=== PATIENT | female | born 1960 | race Caucasian/White ===

== ENCOUNTER 2020-02-15 12:00 | Emergency (ER) | payer OTHER, SELFPAY ==
--- NOTE | 2020-02-15 12:05 | ED.SKABFB ---
HPI - Skin/Abscess/Foreign Bdy General Chief complaint: Skin/Abscess/Foreign Body Stated complaint: swollen finger Time Seen by Provider: 02/15/20 12:08 Source: patient and RN notes reviewed Mode of arrival: ambulatory Limitations: no limitations History of Present Illness complaint: other (Digit edema) Related Data Allergies Allergy/AdvReac Type Severity Reaction Status Date / Time No Known Allergies Allergy Verified 02/15/20 12:11 Review of Systems Review of Systems: Narrative: GENERAL: Well-appearing, well-nourished, and in no acute distress. HEAD: Normocephalic EYES: PERRLA, conjunctivae clear NECK: Supple. CHEST: Speaks in full sentences. No respiratory distress. HEART: Regular rate and rhythm. Normal and equal peripheral pulses. EXTREMITIES: Left hand and digits of hand have normal strength and sensation. 5/5 strength with digit flexion, extension. Range of motion normal. No clubbing, cyanosis, or edema noted. No tenderness. Skin intact. Normal digital cascade with flexion of fingers, median, ulnar and radial nerve intact. Normal sensation of each side of finger. Can perform 'okay' sign, 'cross over finger test of index and middle fingers' and 'thumbs up' sign. No scissoring. Normal thumb opposition. Good capillary refill and radial pulse. Distal capillary refill ?3 seconds. SKIN: Warn, dry, intact, pink. Fifth digit of left hand erythematous, edematous, indurated, tender, cap refill less than 3 seconds NEURO: Alert and oriented x3. PSYCH: Normal mood and affect All systems reviewed & are unremarkable except as noted in HPI and below PMFSH Social History Social History Gender identity (if verbalized by the patient): Female Comments At time of signature, agree with nursing past medical, surgical, social and family history. There is no relevant family history pertinent to the presenting complaint Exam Narrative: Exam Narrative: GENERAL: Well-appearing, well-nourished, and in no acute distress. HEAD: Normocephalic EYES: PERRLA, conjunctivae clear NECK: Supple. CHEST: Speaks in full sentences. No respiratory distress. HEART: Regular rate and rhythm. Normal and equal peripheral pulses. EXTREMITIES: Right/Left hand and digits of hand have normal strength and sensation. 5/5 strength with digit flexion, extension. Range of motion normal. No clubbing, cyanosis, or edema noted. No tenderness. Skin intact. Normal digital cascade with flexion of fingers, median, ulnar and radial nerve intact. Normal sensation of each side of finger. Can perform 'okay' sign, 'cross over finger test of index and middle fingers' and 'thumbs up' sign. No scissoring. Normal thumb opposition. Good capillary refill and radial pulse. Distal capillary refill ?3 seconds. SKIN: Warn, dry, intact, pink. No rash NEURO: Alert and oriented x3. PSYCH: Normal mood and affect Course Course Emergency Course: Patient is aware of diagnosis, understands and agrees to treatment plan. Anticipatory guidance given. Patient agrees to follow-up as directed and is aware of reasons to seek care at the emergency department. Portions of this record may have been created with voice recognition software Vital Signs Vital signs: Vital Signs Temperature 97.3 F L 02/15/20 12:08 Pulse Rate 69 02/15/20 12:08 Respiratory Rate 20 02/15/20 12:08 Blood Pressure 121/80 02/15/20 12:08 Pulse Oximetry 98 02/15/20 12:08 Temperature 97.3 F L 02/15/20 12:08 Pulse Rate 69 02/15/20 12:08 Respiratory Rate 20 02/15/20 12:08 Blood Pressure 121/80 02/15/20 12:08 Pulse Oximetry 98 02/15/20 12:08 Reviewed. Patient has been instructed to follow up with her primary care provider within the next week regarding her elevated blood pressure today. MDM - Skin/Abscess/Foreign Bdy Differential Diagnosis Differential diagnosis: Likely abscess of skin or subcutaneous tissue, cellulitis, contact dermatitis and other (Gout) Critical Care Time Critical Care Ti
[2020-02-15 12:08] VITALS: BP 121/80; PULSE 69; RESP 20; TEMP 36.3; O2SAT 98
== END 2020-02-15 12:15 | disposition home or self-care (01) ==
PROVIDERS: Emergency Provider Nurse Practitioner
DX: L03.012 Cellulitis of left finger (principal); R03.0 Elevated blood-pressure reading, without diagnosis of hypertension
CPT/HCPCS: 99213; G0463

== ENCOUNTER 2020-10-13 18:18 | Emergency (ER) | payer OTHER, SELFPAY ==
--- NOTE | 2020-10-13 18:23 | ED.FEMALEGU ---
HPI - Female Genitourinary General Chief complaint: Urogenital-Female Stated complaint: blood in urine Time Seen by Provider: 10/13/20 19:05 Source: patient and RN notes reviewed Mode of arrival: ambulatory Limitations: no limitations History of Present Illness HPI Narrative: 59-year-old female presents with concern for hematuria, dysuria. Reports 2 to 3-day history of dysuria and bilateral low back pain. Reports noticing hematuria today. She denies any fever, body aches, chills. Reports an episode of nausea today without vomiting. Reports foul smelling odor with cloudy color. MD elicited complaint: UTI Related Data Allergies Allergy/AdvReac Type Severity Reaction Status Date / Time No Known Allergies Allergy Verified 10/13/20 18:38 Review of Systems Review of Systems: Narrative: CONSTITUTIONAL: Denies malaise, chills, sweats, or fever. CARDIOVASCULAR: Denies chest pain, palpitations, or edema. RESPIRATORY: Denies cough or dyspnea. GASTROINTESTINAL: Denies abdominal pain, vomiting, diarrhea. Reports nausea GENITOURINARY: Reports dysuria, hematuria, flank pain. Denies frequency, urgency SKIN: Denies rash or itching. MUSCULOSKELETAL: Reports bilateral low back pain. Denies myalgia. All systems reviewed & are unremarkable except as noted in HPI and below PMFSH Social History Social History Gender identity (if verbalized by the patient): Female Comments At time of signature, agree with nursing past medical, surgical, social and family history. There is no relevant family history pertinent to the presenting complaint Exam Narrative: Exam Narrative: GENERAL: Well-appearing, well-nourished, and in no acute distress. HEAD: Normocephalic. EYES: PERRLA, conjunctivae clear. NECK: Supple. No lymphadenopathy CHEST: Clear to auscultation. No respiratory distress. HEART: Regular rate and rhythm. ABDOMEN: Soft, nontender upon palpation, nondistended, normal active bowel sounds, no palpable or pulsatile masses, no guarding. No CVA tenderness SKIN: Warm, dry, no rash. NEURO: Alert and oriented x3. PSYCH: Normal mood and affect Course Course Emergency Course: Patient is aware of diagnosis, understands and agrees to treatment plan. Anticipatory guidance given. Patient agrees to follow-up as directed and is aware of reasons to seek care at the emergency department. Portions of this record may have been created with voice recognition software Vital Signs Vital signs: Vital Signs Temperature 97.2 F L 10/13/20 18:28 Pulse Rate 75 10/13/20 18:28 Respiratory Rate 16 10/13/20 18:28 Blood Pressure 129/74 10/13/20 18:28 Temperature 97.2 F L 10/13/20 18:28 Pulse Rate 75 10/13/20 18:28 Respiratory Rate 16 10/13/20 18:28 Blood Pressure 129/74 10/13/20 18:28 Reviewed. MDM - Female Genitourinary MDM Narrative Medical decision making narrative: Exam findings and UA show no acute concerns or changes; patient is non-toxic appearing and is in no distress. Patient is appropriate for outpatient treatment and follow-up. Lab Data Attestation: I reviewed the patient's lab results. Labs: Urine Glucose Negative Reference Range: Negative Urine Bilirubin Negative Reference Range: Negative Urine Ketone Negative Reference Range: Negative Urine Specific [place] 1.015 Reference Range:1.001-1.035 Urine Blood 2+ Reference Range: Negative * * Urine pH 7.0 Reference Range: 5.0-9.0 Urine Protein 1+
[2020-10-13 18:28] VITALS: BP 129/74; PULSE 75; RESP 16; TEMP 36.2
== END 2020-10-13 19:22 | disposition home or self-care (01) ==
PROVIDERS: Emergency Provider Nurse Practitioner
DX: N39.0 Urinary tract infection, site not specified (principal)
CPT/HCPCS: 81003; 87077; 87086; 87088; 87186; 99213; G0463

== ENCOUNTER 2021-04-12 14:00 | Outpatient (CLI) | payer OTHER, SELFPAY ==
--- NOTE | ~2021-04-12 | DEXA_ITS ---
Bone Density Report Name: Ximena Yin Age: 60 Sex: Female Ethnicity: White Date of : 1960 Indication: postmenopausal; hysterectomy; Referring Provider: GERALD MCMULLEN Study: Bone densitometry was performed. Exam Date: April 12, 2021 Accession number: [id number] Bone Density: Region BMD T-score Z-score Classification AP Spine (L1-L4) 0.784 -2.4 -1.0 Osteopenia Femoral Neck (Left) 0.568 -2.5 -1.2 Osteoporosis Total Hip (Left) 0.754 -1.5 -0.6 Osteopenia Total Hip Bilateral Avg 0.708 -1.9 -1.0 Osteopenia Femoral Neck (Right) 0.553 -2.7 -1.4 Osteoporosis Total Hip (Right) 0.661 -2.3 -1.3 Osteopenia World Health Organization criteria for BMD impression classify patients as: Normal (T-score at or above -1.0), Osteopenia (T-score between -1.0 and -2.5), or Osteoporosis (T-score at or below -2.5). 10-year Fracture Risk: FRAX not reported because: Some T-score for Spine Total or Hip Total or Femoral Neck at or below -2.5 Clinical Information Provided by Patient: Has used the following medications: Vitamin D, Calcium Has the following medical conditions: Hysterectomy Patient maximum height was 63 Menopause Age: 42 No regular weight bearing exercise Onset of menses at age 12 Number of children 1 Impression: The patient has osteoporosis, based on the Right Femoral Neck T-score. Discussion: INCREASED RISK OF FRACTURE. BONE DENSITY IS UNDESIRABLY LOW AT ONE OR MORE SKELETAL SITES, CONSISTENT WITH POSTMENOPAUSAL OSTEOPOROSIS. This patient's lowest T-score meets the World Health Organization's (WHO) criteria for osteoporosis at one or more sites (T-score -2.5 or below). In untreated patients, the risk of osteoporotic fracture increases approximately two-fold for each 1.0 SD decrease in T-score. Low bone density is not the only risk factor for fracture; also consider factors such as patient's age, frailty or poor health, risk of falling, risk of injury, previous osteoporotic fracture, family history of osteoporosis, cigarette smoking, low body weight, etc. Not everyone with low bone mineral density has osteoporosis; osteomalacia and other metabolic bone disorders should also be considered. Patients who have osteoporosis should be evaluated for specific diseases and conditions (secondary causes) that may cause or contribute to bone loss. The [place] [employer] Endocrinologists (AACE) and National Osteoporosis Foundation (NOF) recommend pharmacologic intervention for all postmenopausal women whose T-score is in this range. The patient should follow a healthful lifestyle (good nutrition with adequate calcium and vitamin D, and appropriate weight-bearing exercise). Follow-Up: Consider a repeat BMD and Vertebral Fracture Assessment (VFA) exam in 2 years or sooner if medically necessary, to reassess this patien
--- NOTE | ~2021-04-12 | MM_ITS ---
EXAMINATION: MM screening nando BI [place] HISTORY: Screening TECHNIQUE: Craniocaudal and mediolateral oblique 3-D tomosynthesis images were obtained and synthetic 2-D images were generated. CAD analysis was submitted and interpreted. COMPARISON: No prior studies for comparison. BREAST PARENCHYMAL COMPOSITION: There are scattered areas of fibroglandular density. FINDINGS: There are bilateral breast asymmetries in the upper outer quadrant of the right breast and throughout the left breast. There are no suspicious calcifications. IMPRESSION: 1. Bilateral breast asymmetries. 2. Recommend comparison to previous outside mammograms. BI-RADS Category 0: Incomplete: Needs additional imaging evaluation. Reviewed, dictated and finalized at location A.
== END 2021-04-12 14:01 | disposition home or self-care (01) ==
LOC: ANHIMG 14:02
PROVIDERS: PCP Internal Medicine; Visit Provider Internal Medicine
DX: Z12.31 Encounter for screening mammogram for malignant neoplasm of breast (principal); Z78.0 Asymptomatic menopausal state; M85.89 Other specified disorders of bone density and structure, multiple sites; M81.0 Age-related osteoporosis without current pathological fracture
CPT/HCPCS: 77063; 77067; 77080

== ENCOUNTER 2022-02-24 08:44 | Outpatient (CLI) | payer OTHER, SELFPAY ==
[2022-02-24 13:11] LABS: Alanine Aminotransferase 18 U/L (6-35); Albumin Level 4.7 g/dL (3.5-5.1); Alkaline Phosphatase 57 U/L (38-126); Anion Gap 11 mmol/L (8-16); Aspartate Amino Transferase 24 U/L (14-36); Bilirubin,Total 0.6 mg/dL (0.2-1.3); Blood Urea Nitrogen 16 mg/dL (7-17); Calcium 9.1 mg/dL (8.4-10.2); Carbon Dioxide 25 mmol/L (22-30); Chloride 103 mmol/L (98-107); Cholesterol 159 mg/dL (0-200); Estimated Glomerular Filt Rate > 60; Glucose 83 mg/dL (65-110); HDL Direct 37 mg/dL; Sodium 139 mmol/L (137-145); Triglycerides 210 mg/dL (<150)
[2022-02-24 13:22] LABS: LDL Cholesterol Direct 76 mg/dL
[2022-02-24 13:43] LABS: Hemoglobin A1C 5.7 % (<5.7)
== END 2022-02-24 08:45 | disposition home or self-care (01) ==
LOC: ANHGOSHLAB 08:45
PROVIDERS: PCP Family Medicine; Visit Provider Family Medicine
DX: E78.5 Hyperlipidemia, unspecified (principal); R73.03 Prediabetes; Z13.228 Encounter for screening for other metabolic disorders
CPT/HCPCS: 36415; 80053; 80061; 83036

== ENCOUNTER → 2022-02-24 09:03 | Outpatient (CLI) | payer OTHER, SELFPAY ==
--- NOTE | ~2022-02-24 | XR_ITS ---
XR knee RT 3V DATE: 02/24/2022 09:17 INDICATION: Right knee diffuse pain. Twisted knee 2 weeks ago. TECHNIQUE: AP, lateral, sunrise views COMPARISON: None FINDINGS: There is severe joint space narrowing and severe hypertrophic spurring at the patellofemora l joint. There is periarticular spurring at the lateral compartment. Medial and lateral compartment joint spac es are relatively preserved. Osteopenia. No fracture, dislocation or joint effusion is evident. No periosteal reaction or bone destruction. No chondrocalcinosis. IMPRESSION: Severe hypertrophic osteoarthritic change at the patellofemoral joint Mild osteoarthritis at the lateral compartment Osteopenia No fracture or dislocation or joint effusion Reviewed, dictated and finalized at location B. IMPRESSION: Severe hypertrophic osteoarthritic change at the patellofemoral minh nt Mild osteoarthritis at the lateral compartment Osteopenia No fracture or dislocation or joint effusion
== END ==
PROVIDERS: PCP Family Medicine; Visit Provider Family Medicine
DX: M17.11 Unilateral primary osteoarthritis, right knee (principal); M85.861 Other specified disorders of bone density and structure, right lower leg
CPT/HCPCS: 73562

== ENCOUNTER 2022-04-28 07:39 | Outpatient (CLI) | payer OTHER, SELFPAY ==
--- NOTE | ~2022-04-28 | MM_ITS ---
EXAMINATION: MM screening nando BI [place] HISTORY: Screening TECHNIQUE: Craniocaudal and mediolateral oblique 3-D tomosynthesis images were obtained and synthetic 2-D images were generated. CAD analysis was submitted and interpreted. COMPARISON: Comparison to multiple prior studies sequentially, with oldest reviewed study dated 04/16. BREAST PARENCHYMAL COMPOSITION: There are scattered areas of fibroglandular density. FINDINGS: There is a focal asymmetry medially in the right breast near the chest wall on CC view only . The left breast is stable without evidence for malignancy. IMPRESSION: 1. New right breast asymmetry located medially and posteriorly on CC view. 2. Additional mammographic views and possible breast ultrasound are recommended. BI-RADS Category 0: Incomplete: Needs additional imaging evaluation. Reviewed, dictated and finalized at location A. IMPRESSION: 1. New right breast asymmetry located medially and posteriorly on CC view. 2. Additional mammographic views and possible breast ultrasound are recommended . BI-RADS Category 0: Incomplete: Needs additional imaging evaluation.
== END 2022-04-28 07:40 | disposition home or self-care (01) ==
LOC: ANHIMG 07:44
PROVIDERS: PCP Family Medicine; Visit Provider Family Medicine
DX: Z12.31 Encounter for screening mammogram for malignant neoplasm of breast (principal); R92.8 Other abnormal and inconclusive findings on diagnostic imaging of breast
CPT/HCPCS: 77063; 77067

== ENCOUNTER 2022-05-13 14:43 | Outpatient (RCR) | payer OTHER, SELFPAY ==
--- NOTE | 2022-05-13 16:09 | PTOPEVAL1 ---
Assessment and note entered by Rissa Chapman DPT Evaluation Information Assessment Status Evaluation Diagnosis R Knee OA Onset 05/10/2022 Subjective Information Pt reports that her R knee pain has been going on for several years. 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 She had a recent flare-up of pain when she was walking with her dog and her dog pulled forward hard on the leash. She reports the most pain now with walking, steps, and driving in her car. Pt reports that pain significantly affects her sleep. She reports that pain is best when she first wakes up and is worse at the end of the day. She has a follow-up scheduled with her MD on 06-06-22 and the plan is to schedule a R TKA. Her goals with physical therapy are to provide pain relief prior to surgery. Reported Pain Level Pain Score 5: Self Report Assessment PT Clinical Summary Pt presents to skilled PT with R knee pain with diagnosis of R knee OA. She demonstrates decreased mobility, decreased strength, and antalgic gait. Her current deficits make it more challenging for her to walk, navigate stairs, and use her gas pedal when driving. She was provided with an HEP focused on improving mobility, stability, and strength of the R knee within her tolerance. She will benefit from skilled PT to improve the aforementioned impairments, facilitate symptom relief, and return to functional and recreational activities. Plan of Care Interventions Electrical Stimulation,Gait Training,Hot Pack/Cold Pack,Manual Therapy,Neuro Re-education,Patient/ Caregiver Educati,Therapeutic Activities, Therapeutic Exercise PT Services Indicated Yes Treatment Frequency and 1x week for 8 visits Duration These treatments will address the objective and functional deficits as defined above. The patient will be advanced safely and appropriately in order for the patient to progress towards his/her prior level of function. Additional exercises will be introduced and as well as a comprehensive home exercise program upon discharge, if needed, ?to ensure carryover of functional gains achieved in the clinic. This treatment plan has been reviewed and agreement upon by the patient.
--- NOTE | 2022-07-19 12:17 | PTOPPROG ---
Assessment and note entered by Rissa Chapman DPT Evaluation Information Assessment Status Progress Diagnosis R TKA Onset 07/13/2022 Subjective Information Pt had R TKA 07/13 and reports high levels of pain since. She does note that pain is steadily improving over time. She has been using ice and medication for pain relief and has been using a FWW when walking. She has been ordered to keep her dressing on around her knee. Her next follow-up is on 07/26. Assessment PT Clinical Summary Pt presents to PT s/p R TKA on 07/13 with R knee pain and demonstrates decreased strength, decreased range of motion, increased edema, and antalgic gait. Her R knee is currently measured at 15-89 deg of ROM. 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 She was provided with an HEP focused on improving mobility and strength within her tolerance. She will benefit from skilled PT to improve the aforementioned impairments, facilitate symptom relief, and return to functional and recreational activities. Plan of Care PT Services Indicated Yes Treatment Frequency and 2x week for 8 visits Duration These treatments will address the objective and functional deficits as defined above. The patient will be advanced safely and appropriately in order for the patient to progress towards his/her prior level of function. Additional exercises will be introduced and as well as a comprehensive home exercise program upon discharge, if needed, ?to ensure carryover of functional gains achieved in the clinic. This treatment plan has been reviewed and agreement upon by the patient.
--- NOTE | 2022-08-23 06:44 | BUPTOPEVAL1 ---
Assessment and note entered by JT File, PT Evaluation Information Assessment Status Re-evaluation Diagnosis R TKA Onset 07/13/2022 Subjective Information patient reports she is feeling better as of late . she reports her pain in the R knee is subsiding. she reports she has an extensionator at home now to help with achieving full knee extension. she reports she has been using it 2-3 times daily at home. she reports she is no longer using any AD. Reported Pain Level Pain Score 2: Self Report Assessment PT Clinical Summary mrs. mixon presents to skilled PT services for her 12th skilled therapy visit, and her 8th skilled therapy visit since her R TKA. she presents with continued deficits in R knee extension arom, gait mechanics, strength, and functional mobility. she has progressed since her initial troubles with R knee rom since the addition of an extensionator to her HEP. she would benefit from continued skilled PT to adress her remaining deficits in rom, strength, gait mechanics, functional mobility, and to achieve all goals. currently she has met goals for HEP performance and R knee flexion. she continues to be a good candidate for skilled PT and has really begun progressing towards goals achievement over the last week. Plan of Care Interventions Gait Training,Hot Pack/Cold Pack,Manual Therapy, Neuro Re-education,Patient/Caregiver Educati, Therapeutic Activities,Therapeutic Exercise PT Services Indicated Yes Treatment Frequency and continue skilled PT 2x weekly for 6 more visits Duration These treatments will address the objective and functional deficits as defined above. The patient will be advanced safely and appropriately in order for the patient to progress towards his/her prior level of function. Additional exercises will be introduced and as well as a comprehensive home exercise program upon discharge, if needed, ?to ensure carryover of functional gains achieved in the clinic. This treatment plan has been reviewed and agreement upon by the patient.
== END 2022-08-16 18:00 | disposition still patient (30) ==
LOC: CHSPT 14:43
PROVIDERS: Visit Provider Orthopaedic Surgery
DX: M17.11 Unilateral primary osteoarthritis, right knee (principal)
CPT/HCPCS: 97016; 97110; 97161

== ENCOUNTER 2022-05-24 12:54 | Outpatient (CLI) | payer OTHER, SELFPAY ==
--- NOTE | ~2022-05-24 | MMUS_ITS ---
EXAMINATION: MM diagnostic nando RT [place], US breast RT limited HISTORY: New right breast asymmetry in the posteromedial right breast on screening craniocaudal view of 04/28/2022 TECHNIQUE: Additional 3-D tomosynthesis images of the right breast were performed and synthetic 2-D i mages were generated. CAD analysis was submitted and interpreted. High resolution upper inner and low er inner quadrant right breast ultrasound was performed. COMPARISON: 05/15/2022, 04/12/2021, 05/04/2015 bilateral screening mammogram examinations FINDINGS: MAMMOGRAPHIC FINDINGS: There is a triangular proxy 9.4 x 10.7 mm area of asymmetric mixed fatty and soft tissue density deep in the posterior inner mid right breast. Interspersed fatty tissue suggests that this is most likely benign. ULTRASOUND: Targeted ultrasound at the upper inner and lower inner quadrants of the right breast reveals no suspi cious mass or shadowing, cyst or other significant finding. IMPRESSION: 1. Probable benign findings 2. 6 month diagnostic right mammogram and targeted right breast ultrasound follow-up are recommended BI-RADS category 3, probably benign findings. Reviewed, dictated and finalized at location A. RNET SOURCER IMPRESSION: 1. Probable benign findings 2. 6 month diagnostic right mammogram and targeted right breast ultrasound foll ow-up are recommended BI-RADS category 3, probably benign findings.
== END 2022-05-24 12:55 | disposition home or self-care (01) ==
PROVIDERS: PCP Family Medicine; Visit Provider Family Medicine
DX: R92.8 Other abnormal and inconclusive findings on diagnostic imaging of breast (principal)
CPT/HCPCS: 76642; 77061; 77065; G0279

== ENCOUNTER 2022-06-23 11:44 | Day surgery (SDC) | payer OTHER, SELFPAY ==
[2022-06-14 10:41] VITALS: BMI 29.2
--- NOTE | 2022-06-23 10:33 | PM.HPGS ---
History of Present Illness History of Present Illness Consent: Risks, benefits, and alternatives have been discussed and questions answered. Patient agrees to proceed with procedure. Chief complaint: Neoplasm Screening and Family HX Colon Cancer Narrative: Ximena Yin is a 61 year old female Referred for colon cancer screening. She has a history of polyps. Her last colonoscopy was 5 years ago. Review of Systems Review of Systems: All systems reviewed & are unremarkable except as noted in HPI and below PMFSH Past Medical History Medical History GERD (gastroesophageal reflux disease) Hyperlipidemia Rotator cuff arthropathy Surgical History Surgical History H/O: hysterectomy Family History Family History Father Heart disease Gastric carcinoma Mother Diabetes mellitus Heart disease Cerebrovascular accident Sibling Diabetes mellitus Hypertension Cerebrovascular accident Carcinoma of colon Grandparent Diabetes mellitus Heart disease Carcinoma of colon Grandparent Diabetes mellitus Gastric carcinoma Social History Social History Smoking status: Never smoker Alcohol intake: current Alcohol use details: will have 2 beer's a month Substance use: never Substance use type: does not use Living arrangements: with family Gender identity (if verbalized by the patient): Female Sexual Orientation (if Verbalized by the Patient): Straight or Heterosexual Spiritual care concerns: No Meds Home Medications and Allergies Home Medications Medication Instructions Recorded Confirmed Type Lactobacillus acidophilus 10 mg PO DAILY 02/23/21 06/14/22 History (Acidophilus capsule) ascorbic acid (vitamin C) 1,000 mg 1 g PO DAILY 02/23/21 06/14/22 History tablet calcium carbonate 600 mg calcium 600 mg PO DAILY 02/23/21 06/14/22 History (1,500 mg) tablet (Calcium) cholecalciferol (vitamin D3) 125 125 mcg PO DAILY 02/23/21 06/14/22 History mcg (5,000 unit) capsule magnesium 250 mg tablet 250 mg PO DAILY 02/23/21 06/14/22 History omega-3 fatty acids 1,000 mg 1,000 mg PO DAILY 02/23/21 06/14/22 History capsule (Fish Oil Concentrate) omeprazole 20 mg capsule,delayed 20 mg PO DAILY 02/23/21 06/14/22 History release turmeric root extract 500 mg 500 mg PO DAILY 02/23/21 06/14/22 History capsule vitamin A 2,400 mcg capsule 2,400 mcg PO DAILY 02/23/21 06/14/22 History vitamin B complex (B 1 tablet PO DAILY 02/23/21 06/14/22 History Complex-Vitamin B12 tablet) naproxen 500 mg tablet 500 mg PO BID #30 tabs 02/24/22 06/14/22 Rx alendronate 70 mg tablet 70 mg PO WEEKLY #12 tabs 06/07/22 06/14/22 Rx atorvastatin 20 mg tablet 20 mg PO DAILY #90 tabs 06/07/22 06/14/22 Rx cinnamon bark 500 mg capsule 500 mg PO DAILY 06/14/22 History (Cinnamon) Allergies Allergy/AdvReac Type Severity Reaction Status Date / Time No Known Allergies Allergy Verified 06/23/22 12:35 Exam Const: General: alert Orientation/consciousness: patient oriented x3 Resp: Auscultation: clear to auscultation bilaterally Cardio: Rhythm: regular rhythm GI: GI Palp: Yes Soft to palpation and No Tenderness to palpation present (GI) Neuro: General: patient oriented x3 Assessment and Plan Assessment and plan (1) Colon cancer screening: Code(s): Z12.11 - Encounter for screening for malignant neoplasm of colon Status: Acute Assessment and Plan: Colonoscopy with possible biopsy or polypectomy or cautery or injection of substances.
[2022-06-23 12:00] VITALS: BP 131/88; PULSE 78; RESP 20; TEMP 36.7; O2SAT 99
--- NOTE | 2022-06-23 12:15 | WPDANESEPPF ---
Anes - Initial Pre Proc Eval Procedure: Operation Date: 06/23/22 13:30 Proposed Procedures p Screening Colonoscopy - Keo Díaz MD Date/Time: 06/23/22 12:15 Surgeon: Keo Díaz MD Pre Op Diagnosis: Neoplasm Screening and Family HX Colon Cancer Patient Data Age: 61 Gender: F Height: 1.6 m Weight: 75 kg Allergies Allergy/AdvReac Type Severity Reaction Status Date / Time No Known Allergies Allergy Verified 06/14/22 10:37 Home Medications Medication Instructions Recorded Confirmed Type Lactobacillus acidophilus 10 mg PO DAILY 02/23/21 06/14/22 History (Acidophilus capsule) ascorbic acid (vitamin C) 1,000 mg 1 g PO DAILY 02/23/21 06/14/22 History tablet calcium carbonate 600 mg calcium 600 mg PO DAILY 02/23/21 06/14/22 History (1,500 mg) tablet (Calcium) cholecalciferol (vitamin D3) 125 125 mcg PO DAILY 02/23/21 06/14/22 History mcg (5,000 unit) capsule magnesium 250 mg tablet 250 mg PO DAILY 02/23/21 06/14/22 History omega-3 fatty acids 1,000 mg 1,000 mg PO DAILY 02/23/21 06/14/22 History capsule (Fish Oil Concentrate) omeprazole 20 mg capsule,delayed 20 mg PO DAILY 02/23/21 06/14/22 History release turmeric root extract 500 mg 500 mg PO DAILY 02/23/21 06/14/22 History capsule vitamin A 2,400 mcg capsule 2,400 mcg PO DAILY 02/23/21 06/14/22 History vitamin B complex (B 1 tablet PO DAILY 02/23/21 06/14/22 History Complex-Vitamin B12 tablet) naproxen 500 mg tablet 500 mg PO BID #30 tabs 02/24/22 06/14/22 Rx alendronate 70 mg tablet 70 mg PO WEEKLY #12 tabs 06/07/22 06/14/22 Rx atorvastatin 20 mg tablet 20 mg PO DAILY #90 tabs 06/07/22 06/14/22 Rx cinnamon bark 500 mg capsule 500 mg PO DAILY 06/14/22 History (Cinnamon) Patient hx anesthesia problems: none Family hx anesthesia problems: none Results Review: All pre-operative results and documents have been reviewed as part of the pre-operative evaluation. [facility] Past Medical History Medical History GERD (gastroesophageal reflux disease) Hyperlipidemia Rotator cuff arthropathy Surgical History Surgical History H/O: hysterectomy Family History Family History Father Heart disease Gastric carcinoma Mother Diabetes mellitus Heart disease Cerebrovascular accident Sibling Diabetes mellitus Hypertension Cerebrovascular accident Carcinoma of colon Grandparent Diabetes mellitus Heart disease Carcinoma of colon Grandparent Diabetes mellitus Gastric carcinoma Social History Social History Smoking status: Never smoker Alcohol intake: current Alcohol use details: will have 2 beer's a month Substance use: never Substance use type: does not use Living arrangements: with family Gender identity (if verbalized by the patient): Female Sexual Orientation (if Verbalized by the Patient): Straight or Heterosexual Spiritual care concerns: No Anes - Eval Final PreProcedure Day of Procedure 06/23/22 12:15 Patient weight: overweight Heart: regular rate and rhythm Lungs: clear to auscultation Airway: Mallampati scale class II Neurological: alert and oriented Last oral intake: >/= 8 hours ASA classification: II Emergent: no Anesthetic plan: proceed Anesthesia type and monitoring: general GIVS and standard monitoring Results Review: All pre-operative results and documents have been reviewed as part of the pre-operative evaluation. Informed Consent: The patient's anesthetic plan and its attendant risks and benefits were discussed with the patient/family/POA. Questions were solicited and answers provided to the satisfaction of the patient/family/POA.
[2022-06-23] MEDS: LACTATED RINGERS 1,000 ML 150 ML IV CONT (12:44)
[2022-06-23 13:35] VITALS: BP 105/49; PULSE 74; RESP 16; O2SAT 98
[2022-06-23 13:45] VITALS: BP 119/84; PULSE 66; RESP 15; O2SAT 99
[2022-06-23 13:55] VITALS: BP 123/76; PULSE 71; RESP 14; O2SAT 100
--- NOTE | 2022-06-23 14:00 | WPDANESPN ---
Anes - Prog Note Post-Op Date/Time: 06/23/22 14:00 Cardiovascular status: normal Respiratory status: normal Airway patency: baseline Mental status: baseline Post-Op hydration status: normal Vital Signs: Last Vital Signs Temp 36.7 C 06/23/22 12:00 Pulse 66 06/23/22 13:45 Resp 15 06/23/22 13:45 BP 119/84 06/23/22 13:45 Pulse Ox 99 06/23/22 13:45 O2 Del Method Room Air 06/23/22 13:45 Pain Score (VAS): 0 I/O: Intake & Output 06/22/22 06/23/22 06/23/22 23:59 07:59 15:59 Intake Total 500 Balance 500 Patient Feedback: Patient satisfied with anesthetic care.
== END 2022-06-23 14:21 | disposition home or self-care (01) ==
PROVIDERS: PCP Family Medicine; Visit Provider Internal Medicine Gastroenterology
PROC: 0DJD8ZZ Inspection of Lower Intestinal Tract, Via Natural or Artificial Opening Endoscopic (ICD-10-PCS; CPT 45378; principal; 2022-06-23 13:30)
DX: Z12.11 Encounter for screening for malignant neoplasm of colon (principal)
CPT/HCPCS: 45378

== ENCOUNTER 2022-06-28 11:56 | Outpatient (CLI) | payer OTHER, SELFPAY ==
--- NOTE | 2022-06-28 12:52 | ECG_ITS ---
Measurements Intervals [place] Rate: 75 P: 40 AR: 181 QRS: -3 QRSD: 90 T: 14 QT: 372 QTc: 416 Interpretive Statements SINUS RHYTHM LOW QRS VOLTAGE IN PRECORDIAL LEADS [QRS DEFLECTION < 1.0 mV IN CHEST LEADS] NO PREVIOUS ECG AVAILABLE FOR COMPARISON Electronically Signed On 06-28-2022 16:36:53 [employer] by Roberto Rogers M.D.
[2022-06-28 13:38] LABS: Basophils Percent Auto 0.4 % (0.2-1.2); Eosinophils Absolute Auto 0.2 K/mm3 (0-0.3); Eosinophils Percent Auto 3.8 % (0-4.4); Hemoglobin 12.6 g/dL (12.0-15.0); Immature Granulocyte Absolute 0.01 K/mm3 (0.00-0.031); Immature Granulocyte Percent A 0.2 % (0-0.5); Lymphocytes Absolute Auto 1.57 K/mm3 (0.9-3.2); Mean Corpuscular HGB Conc 32.3 g/dl (32-36); Mean Corpuscular Hemoglobin 31.2 pg (26-34); Mean Corpuscular Volume 96.5 fl (80-100); Mean Platelet Volume 9.2 fl (7.4-10.4); Monocytes Absolute Auto 0.4 K/mm3 (0.1-0.6); Monocytes Percent Auto 6.9 % (2.6-8.5); Neutrophils Absolute Auto 3.1 K/mm3 (1.3-6.7); Neutrophils Percent Auto 58.7 % (45.5-73.1); Platelet Count Result 243 k/mm3 (150-375); Red Blood Count 4.04 M/mm3 (4.2-5.4); Red Cell Distribution Width 12.6 % (11.5-14.5); White Blood Count 5.2 K/mm3 (4.5-10.0)
[2022-06-28 13:47] LABS: Albumin Level 4.7 g/dL (3.5-5.1); Estimated Glomerular Filt Rate > 60; Glucose 108 mg/dL (65-110); Hemoglobin A1C 5.7 % (<5.7)
[2022-06-28 14:31] LABS: Urine Cotinine NEGATIVE
== END 2022-06-28 11:57 | disposition home or self-care (01) ==
PROVIDERS: PCP Family Medicine; Visit Provider Orthopaedic Surgery
DX: Z01.812 Encounter for preprocedural laboratory examination (principal); Z01.810 Encounter for preprocedural cardiovascular examination; M17.11 Unilateral primary osteoarthritis, right knee
CPT/HCPCS: 80307; 82040; 82565; 82947; 83036; 85025; 87081; 93005

== ENCOUNTER 2022-07-13 00:52 | Day surgery (SDC) | payer OTHER, SELFPAY ==
--- NOTE | 2022-06-28 12:11 | PC.NURSE ---
Report to the Outpatient Waiting Room, entrance under the green pavilion located off [facility], at time __6:OOAM on date __07/13/22 . Planned Procedure Time: __7:30AM . Time changes happen often and if your time is changed the preop area will call you the afternoon before. - You and your visitor will be asked to self-screen and do not enter if you have any COVID symptoms. - Only one visitor is requested with a max of two and NO children visitors are allowed at this time. - The patient visitor may be requested to leave or wait in car when not with patient due to distancing restrictions. - A mask is optional within the hospital. Patients may have clear liquids (water, carbonated beverages, clear teas, apple juice) until 3 hours prior to surgery with a maximum of 20 ounces. - No food from midnight until time of surgery Take the following medications with a SIP of water the morning of surgery: ____NONE Medications to discontinue per physician ___HOLD ALL VITAMINS/SUPPLEMENTS 3 DAYS PRE-OP Date to take last dose____07/09/22 Please no make-up, nail korean, hairspray, perfume, deodorant, or body powder the day of surgery. No jewelry (including any body piercings) or valuables the day of surgery, leave them at home. Please take a shower or bath the night before, or the morning of, surgery with an antibacterial soap. Wear comfortable, loose fitting clothing. Children are encouraged to wear pajamas. - Jewelry must be removed prior to entering the operating room. Rings and piercings that are not removed may be cut off. - The hospital will not accept responsibility for valuables. - Please leave all valuables, including medications, at home the day of surgery. If you are going home after surgery, a licensed driver wheelchair must drive you home. - NO public transportation without another adult if you receive anesthesia. - We recommend that an adult stay with you for 24 hours following discharge. - We also recommend that you do not drive, make important decision, drink alcoholic beverages, or take any drugs that were not prescribed by your health care provider for at least 24 hours after your discharge time. Follow any additional instructions given to you from your surgeon. If you or anyone in your household have experienced Covid symptoms in the past week, please notify your surgeon or the nurse liaison at the phone number below for possible testing. Telephone instructions given to __PATIENT and asked if any additional questions and then verbalized understanding. Patient advised to call surgeon office or pre surgery nurse liaison [phone] if any additional questions.
[2022-06-28 12:13] VITALS: BP 128/70; PULSE 70; RESP 16; TEMP 36.7; O2SAT 98; BMI 31.4
--- NOTE | 2022-07-06 13:17 | PM.IMHP ---
H&P: HPI History of Present Illness Date/Time: 07/06/22 13:17 Chief Complaint: The patient is a 61-year-old female who sees Dr. Vázquez regarding her right knee. The patient has a chronic ongoing history of pain localized to right knee this is due to primary osteoarthritis. Patient has aching pain worse with activities and relieved by rest. She has crepitation mechanical symptoms with occasional swelling this is worse with activities and relieved by rest. She cannot stand or walk for long. She has trouble squatting kneeling going up and down stairs she is limited in her daily activities. Despite conservative measures including cortisone therapy and anti-inflammatories symptoms continue. X-rays show advanced primary osteoarthritis in the right knee which is [id number]. The patient has discussed further treatment options in detail with Dr. Vázquez, she would now like to proceed with right total knee arthroplasty. Review of Systems Review of Systems: Ten point review of systems otherwise negative [facility] Past Medical History Medical History GERD (gastroesophageal reflux disease) Hyperlipidemia Rotator cuff arthropathy Surgical History Surgical History H/O: hysterectomy Family History Family History Father Heart disease Gastric carcinoma Mother Diabetes mellitus Heart disease Cerebrovascular accident Sibling Diabetes mellitus Hypertension Cerebrovascular accident Carcinoma of colon Grandparent Diabetes mellitus Heart disease Carcinoma of colon Grandparent Diabetes mellitus Gastric carcinoma Social History Social History Smoking packs per day: 1 Smoking cigarettes per day: 20.0 Years smoked: 10 Smoking pack-years: 10.00 Smoking status: Former smoker Tobacco type: cigarettes Smoking end date: 01/15/88 Alcohol intake: current Alcohol use details: will have 2 beer's a month Substance use: never Substance use type: does not use Additional living arrangements comments: SPOUSE Gender identity (if verbalized by the patient): Female Sexual Orientation (if Verbalized by the Patient): Straight or Heterosexual Spiritual care concerns: No Meds Home Medications and Allergies Home Medications Medication Instructions Recorded Confirmed Type Lactobacillus acidophilus 10 mg PO DAILY 02/23/21 06/28/22 History (Acidophilus capsule) ascorbic acid (vitamin C) 1,000 mg 1 g PO DAILY 02/23/21 06/28/22 History tablet calcium carbonate 600 mg calcium 600 mg PO DAILY 02/23/21 06/28/22 History (1,500 mg) tablet (Calcium) cholecalciferol (vitamin D3) 125 125 mcg PO DAILY 02/23/21 06/28/22 History mcg (5,000 unit) capsule magnesium 250 mg tablet 250 mg PO DAILY 02/23/21 06/28/22 History omega-3 fatty acids 1,000 mg 1,000 mg PO DAILY 02/23/21 06/28/22 History capsule (Fish Oil Concentrate) omeprazole 20 mg capsule,delayed 20 mg PO QAM 02/23/21 06/28/22 History release turmeric root extract 500 mg 1,000 mg PO DAILY 02/23/21 06/28/22 History capsule vitamin A 2,400 mcg capsule 2,400 mcg PO DAILY 02/23/21 06/28/22 History vitamin B complex (B 1 tablet PO DAILY 02/23/21 06/28/22 History Complex-Vitamin B12 tablet) alendronate 70 mg tablet 70 mg PO WEEKLY #12 tabs 06/07/22 06/28/22 Rx atorvastatin 20 mg tablet 20 mg PO DAILY #90 tabs 06/07/22 06/28/22 Rx cinnamon bark 500 mg capsule 500 mg PO DAILY 06/14/22 06/28/22 History (Cinnamon) black cohosh 40 mg tablet 40 mg PO DAILY 06/28/22 06/28/22 History naproxen 500 mg tablet 500 mg PO BID PRN Pain 06/28/22 06/28/22 History Allergies Allergy/AdvReac Type Severity Reaction Status Date / Time No Known Allergies Allergy Verified 06/28/22 12:05 Exam Narrative: on exam the patient is noted be a
--- NOTE | 2022-07-12 09:21 | WPDANESEPPF ---
Anes - Initial Pre Proc Eval Procedure: Operation Date: 07/13/22 07:30 Proposed Procedures p Right Total Knee Arthroplasty - Mitchell Vázquez MD Date/Time: 07/12/22 09:21 Surgeon: Mitchell Vázquez MD Pre Op Diagnosis: oa right knee Patient Data Age: 61 Gender: F Height: 1.6 m Weight: 80.5 kg Last Vital Signs Temp 36.7 C 06/28/22 12:13 Pulse 70 06/28/22 12:13 Resp 16 06/28/22 12:13 BP 128/70 06/28/22 12:13 Pulse Ox 98 06/28/22 12:13 O2 Del Method Room Air 06/28/22 12:13 Allergies Allergy/AdvReac Type Severity Reaction Status Date / Time No Known Allergies Allergy Verified 07/13/22 06:17 Home Medications Medication Instructions Recorded Confirmed Type Lactobacillus acidophilus 10 mg PO DAILY 02/23/21 07/13/22 History (Acidophilus capsule) ascorbic acid (vitamin C) 1,000 mg 1 g PO DAILY 02/23/21 07/13/22 History tablet calcium carbonate 600 mg calcium 600 mg PO DAILY 02/23/21 07/13/22 History (1,500 mg) tablet (Calcium) cholecalciferol (vitamin D3) 125 125 mcg PO DAILY 02/23/21 07/13/22 History mcg (5,000 unit) capsule magnesium 250 mg tablet 250 mg PO DAILY 02/23/21 07/13/22 History omega-3 fatty acids 1,000 mg 1,000 mg PO DAILY 02/23/21 07/13/22 History capsule (Fish Oil Concentrate) omeprazole 20 mg capsule,delayed 20 mg PO QAM 02/23/21 07/13/22 History release turmeric root extract 500 mg 1,000 mg PO DAILY 02/23/21 07/13/22 History capsule vitamin A 2,400 mcg capsule 2,400 mcg PO DAILY 02/23/21 07/13/22 History vitamin B complex (B 1 tablet PO DAILY 02/23/21 07/13/22 History Complex-Vitamin B12 tablet) alendronate 70 mg tablet 70 mg PO WEEKLY #12 tabs 06/07/22 07/13/22 Rx atorvastatin 20 mg tablet 20 mg PO DAILY #90 tabs 06/07/22 07/13/22 Rx cinnamon bark 500 mg capsule 500 mg PO DAILY 06/14/22 07/13/22 History (Cinnamon) black cohosh 40 mg tablet 40 mg PO DAILY 06/28/22 07/13/22 History naproxen 500 mg tablet 500 mg PO BID PRN Pain 06/28/22 07/13/22 History Patient hx anesthesia problems: post op nausea/vomiting Family hx anesthesia problems: none Results Review: All pre-operative results and documents have been reviewed as part of the pre-operative evaluation. [facility] Past Medical History Medical History GERD (gastroesophageal reflux disease) Hyperlipidemia Rotator cuff arthropathy Surgical History Surgical History H/O: hysterectomy Family History Family History Father Heart disease Gastric carcinoma Mother Diabetes mellitus Heart disease Cerebrovascular accident Sibling Diabetes mellitus Hypertension Cerebrovascular accident Carcinoma of colon Grandparent Diabetes mellitus Heart disease Carcinoma of colon Grandparent Diabetes mellitus Gastric carcinoma Social History Social History Smoking packs per day: 1 Smoking cigarettes per day: 20.0 Years smoked: 10 Smoking pack-years: 10.00 Smoking status: Former smoker Tobacco type: cigarettes Smoking end date: 01/15/88 Alcohol intake: current Alcohol use details: will have 2 beer's a month Substance use: never Substance use type: does not use Living arrangements: with family Additional living arrangements comments: SPOUSE Gender identity (if verbalized by the patient): Female Sexual Orientation (if Verbalized by the Patient): Straight or Heterosexual Spiritual care concerns: No Anes - Eval Final PreProcedure Day of Procedure 07/12/22 09:21 Patient weight: obese Heart: regular rate and rhythm Lungs: clear to auscultation Airway: Mallampati scale class II Neurological: alert and oriented Last oral intake: >/= 8 hours ASA classification: II Emergent: no Anesthetic plan: proceed Anesthesia type and monitori
[2022-07-13] VITALS (13 sets, daily range): BP systolic 81–138; BP diastolic 51–86; PULSE 74–85; RESP 10–16; TEMP 36.1–37.5; O2SAT 91–99
--- NOTE | ~2022-07-13 | XR_ITS ---
Right Knee Technique: AP and lateral views Clinical History: Status post TKR Findings: Patient is status post total knee replacement. Orthopedic hardware alignment appears anatom ic. No hardware complication is evident. Subcutaneous emphysema and swelling is likely postoperative in nature. No acute osseous fracture is seen. Impression: Status post total knee replacement, without evidence of hardware complication. Reviewed, dictated and finalized at location . [facility] DIAL PRINTER Impression: Status post total knee replacement, without evidence of hardware complication.
[2022-07-13] MEDS: ACETAMINOPHEN 500 MG TABLET 1000 MG PO (06:37)
--- NOTE | 2022-07-13 07:02 | WPDHPUPDATE1 ---
History and Physical Update Update Date/Time: 07/13/22 07:02 History and Physical has been reviewed, including an updated exam of the patient. There are NO changes in the patient's condition. Risks, benefits, and alternatives have been discussed and questions answered. Patient agrees to proceed with procedure.
--- NOTE | 2022-07-13 07:04 | WPDHPUPDATE1 ---
History and Physical Update Update Date/Time: 07/13/22 07:04 History and Physical has been reviewed, including an updated exam of the patient. There are NO changes in the patient's condition. Risks, benefits, and alternatives have been discussed and questions answered. Patient agrees to proceed with procedure.
[2022-07-13] MEDS: LACTATED RINGERS 1,000 ML 30 ML IV CONT ×2 (07:06→09:18)
[2022-07-13] MEDS: TRANEXAMIC ACID 1,000MG/ISO100 1,000 MG/100 ML BAG 200 MG IVPB (07:20)
[2022-07-13] MEDS: SCOPOLAMINE 1.5 MG PATCH TRANSDERM (07:22)
--- NOTE | 2022-07-13 07:29 | WPDANESPNB ---
Anes - Peripheral Nerve Block Date/Time: 07/13/22 07:29 I have discussed with the patient/family/POA the placement of a peripheral nerve block for post-operative pain management, including associated risks, benefits, complications, and side effects. Alternative methods of post-operative analgesia were detailed. Questions were solicited and answers provided to the satisfaction of the patient/family/POA. Time-Out: A pre-procedural Time-Out was completed immediately before starting the procedure and confirmed: Patient Identification, Site, Procedure, Patient Position and the Availability of Requisite Equipment. Clinical Indications: Acute post-operative pain management requested by the operative surgeon. Nerve Block Insertion Note Anes-nerve block: adductor canal Patient position: supine Skin prep: chlorhexidine Needle: 22 gauge, stimulating, insulated echogenic needle. Needle length: 80 mm Technique: ultrasound Injectate: bupivacaine 0.5% with epi 5 mcg/ml (30cc - no epi) Observations: tolerated well Complications: none Procedure start time:: 721 Procedure end time:: 726
[2022-07-13] MEDS: ceFAZolin 2 GM/D5W 50 ML 2 GM/50 ML BAG IVPB ×3 (07:30→23:33)
[2022-07-13] MEDS: GENTAMICIN BONE CEMENT REFOBACIN 1 EACH TOPICAL (08:10)
--- NOTE | 2022-07-13 08:57 | W.PM.PROC2 ---
Procedure Note - Detailed Date of Procedure 07/13/22 Pre-op Diagnosis oa right knee Post-op Diagnosis Same Procedure Performed [Right] total knee arthroplasty Surgeon Mitchell Vázquez MD Service Director [facility] General Description of Procedure The patient was brought to the operating room. General anesthetic was administered. Placed on the operating table and sterilely prepped and draped in usual manner. A longitudinal incision was made. Tourniquet inflated to 300 mmHg for a total of [time] minutes. Dissection carried down to the fascia. Medial parapatellar incision was made and the patella subluxated laterally. Patella cut from [22] to [15] mm and sized for a [34] mm button. The tibia cut perpendicular to the long axis and femur cut in 5 degrees of valgus, a [65] femur trialed. [67] tibia was felt to fit the best. The soft tissue balanced, hemostasis obtained. All [address], [67] tibia, [65] femur, [34] mm patella, and [34] mm poly. Motion was 0-125 degrees with good stablility and flexion and extension. The wound was closed with #2 vicryl, 2-0 Vicryl and janel. Estimated Blood Loss 200 Drains No Packing No Pathology None sent Complications No immediate complications Condition Stable Disposition PACU
[2022-07-13] MEDS: fentaNYL CITRATE INJ (*CRX) 100 MCG/2 ML VIAL 25 MCG IV PUSH ×4 (09:35→10:10)
--- NOTE | 2022-07-13 10:01 | SUR.PHASEI ---
0959: Simple mask removed.
--- NOTE | 2022-07-13 11:07 | PC.NURSE ---
This patient, Ximena Yin, was admitted to [facility] Surg Room 323-01. Patient/family oriented to hospital policies and general routines including ID bracelet, bed and alarms, visiting hours, pain management, procedures, bathroom and other care routines, personal items, smoking policy, room service/diet, and visiting hours. Information on how to activate the Rapid Response Team has been discussed. Patient/Family are encouraged to report perceived risks to care and to ask questions if they do not understand what they are told or what they should do.
--- NOTE | 2022-07-13 11:14 | SUR.PHASEI ---
0930: Dr. Spicer aware of soft BP. He said to have fluids wide open and and give the patient a 500mL bolus.
[2022-07-13] MEDS: SODIUM CHLORIDE 0.9% IV 1,000 ML 125 ML IV CONT (11:45)
[2022-07-13] MEDS: HYDROcodone/acetaminophen (*CRX) 5-325 MG TABLET 2 TAB PO ×3 (11:49→21:08)
--- NOTE | 2022-07-13 13:19 | PCOTNOTE ---
Attempted to see pt. for occupational therapy evaluation. Pt. currently too nauseous to participate, requested waiting on evaluation. Nursing aware and attending. Following.
[2022-07-13] MEDS: ONDANSETRON INJ 4 MG/2 ML VIAL IV PUSH ×2 (14:04→21:07)
[2022-07-13] MEDS: ATORVASTATIN 20 MG TABLET PO (16:24)
[2022-07-13] MEDS: SENNA/DOCUSATE SODIUM TABLET 2 TAB PO (16:25)
[2022-07-13] MEDS: CELECOXIB 200 MG CAPSULE PO (16:26)
[2022-07-13] MEDS: RIVAROXABAN 10 MG TABLET PO (16:26)
[2022-07-13] MEDS: FAMOTIDINE 20 MG TABLET PO (21:14)
--- NOTE | 2022-07-14 00:23 | PM.IMCN ---
Assessment and Plan Assessment and plan (1) Hypotension: Code(s): I95.9 - Hypotension, unspecified Status: Acute Assessment and Plan: -could be related to pain medication -could be related to anesthesia. -the patient did receive IV fluid bolus which helped to improve her blood pressure. -the patient stated that she may have been dehydrated she has been NPO all night for surgery. -continue with IV fluids for tonight. -monitor H&H. -her dressing is dry and intact without any drainage. -according to the operative note the patient had an estimated blood loss of 200 without complications. (2) History of total knee arthroplasty: Code(s): Z96.659 - Presence of unspecified artificial knee joint Status: Acute Assessment and Plan: -DVT prophylaxis per Dr. Vázquez. The patient is on SCDs. -analgesics per Dr. Vázquez. -postop care per Dr. Vázquez. -PT and OT per Dr. Vázquez. (3) Osteoporosis: Code(s): M81.0 - Age-related osteoporosis without current pathological fracture Status: Acute Assessment and Plan: The patient is continued on Fosamax (4) Hyperlipidemia: Qualifiers: Hyperlipidemia type: mixed hyperlipidemia Qualified Code(s): E78.2 - Mixed hyperlipidemia Code(s): E78.5 - Hyperlipidemia, unspecified Status: Acute Assessment and Plan: -the patient is continued on atorvastatin. (5) GERD (gastroesophageal reflux disease): Code(s): K21.9 - Gastro-esophageal reflux disease without esophagitis Status: Acute Assessment and Plan: -continue with Pepcid HPI Data of Consult Consult date: 07/13/22 Requesting Physician: Mitchell Vázquez MD Primary Care Provider: Garrett Skinner DO Consult Narrative Narrative: Ximena Yin is a 61 year old female who has severe right knee osteoarthritis. The patient has chronic ongoing history of localized pain to the right knee. The patient has daily pain and is worse with activities and relieved by rest. The patient stated that she could not stand or walk for long periods of time. She has trouble kneeling and going up and downstairs. Despite conservative measures including cortisone therapy and anti-inflammatories her symptoms continue to progress. X-rays show advanced primary osteoarthritis in the right knee is bone on bone. The patient was admitted today per Dr. Vázquez for right total knee arthroplasty. Patient had difficulty awakening from the anesthesia and had postop hypotension. The patient was given IV bolus and started on IV fluids. The patient has been up to the bathroom at least 3 times today. However the patient stated she felt dizzy and nearly passed out 1 time. Her blood pressure was 81/55 and came up to 110/64. The patient is now awake and talking. [place] [facility] were consulted on the date of service of 07/13/2022. Review of Systems Review of Systems: See HPI All systems reviewed & are unremarkable except as noted in HPI and below Constitutional: Constitutional: Reports as per HPI and Reports no additional constitutional complaints Eyes: Eyes: Reports as per HPI and Reports no additional eye complaints ENT: Reports system reviewed and no additional complaints, except as documented and Reports Normal hearing present Cardiovascular: Cardiovascular: Reports no additional cardiovascular complaints Respiratory: Respiratory: Reports no additional respiratory complaints and Reports no additional respiratory complaints Gastrointestinal: Gastrointestinal: Reports as per HPI and Reports no additional gastrointestinal complaints Musculoskeletal: Musculoskeletal: Reports no additional musculoskeletal complaints Integumentary/Breasts: Skin/Breast: Reports system reviewed and no additional complaints, except as docu and Reports as per HPI Neurologic: Reports system reviewed and no additional complaints, except as documented, Rep
[2022-07-14 00:24] VITALS: BP 105/52; PULSE 77; RESP 18; TEMP 36.2; O2SAT 100
[2022-07-14] MEDS: HYDROcodone/acetaminophen (*CRX) 5-325 MG TABLET 2 TAB PO ×3 (00:55→10:04)
[2022-07-14 01:00] LABS: Hematocrit 29.1 % (37.0-47.0); Hemoglobin 9.4 g/dL (12.0-15.0)
[2022-07-14 04:24] VITALS: BP 94/49; PULSE 76; RESP 20; TEMP 36.6; O2SAT 93
[2022-07-14 06:44] LABS: Basophils Percent Auto 0.1 % (0.2-1.2); Eosinophils Percent Auto 0.1 % (0-4.4); Hematocrit 28.5 % (37.0-47.0); Immature Granulocyte Absolute 0.02 K/mm3 (0.00-0.031); Immature Granulocyte Percent A 0.3 % (0-0.5); Lymphocytes Absolute Auto 1.13 K/mm3 (0.9-3.2); Lymphocytes Percent Auto 14.1 % (18.3-44.2); Mean Corpuscular HGB Conc 31.6 g/dl (32-36); Mean Corpuscular Hemoglobin 30.2 pg (26-34); Mean Corpuscular Volume 95.6 fl (80-100); Mean Platelet Volume 8.5 fl (7.4-10.4); Monocytes Absolute Auto 0.9 K/mm3 (0.1-0.6); Monocytes Percent Auto 11.6 % (2.6-8.5); Neutrophils Absolute Auto 5.9 K/mm3 (1.3-6.7); Neutrophils Percent Auto 73.8 % (45.5-73.1); Platelet Count Result 181 k/mm3 (150-375); Red Blood Count 2.98 M/mm3 (4.2-5.4); Red Cell Distribution Width 12.9 % (11.5-14.5)
[2022-07-14 06:52] LABS: Anion Gap 5 mmol/L (8-16); Blood Urea Nitrogen 14 mg/dL (7-17); Calcium 7.9 mg/dL (8.4-10.2); Carbon Dioxide 25 mmol/L (22-30); Chloride 105 mmol/L (98-107); Estimated CRCL calculation 84 ml/min; Estimated Glomerular Filt Rate > 60; Glucose 98 mg/dL (65-110); Sodium 135 mmol/L (137-145)
[2022-07-14 08:07] VITALS: BP 104/67; PULSE 65; RESP 20; TEMP 35.9; O2SAT 95
[2022-07-14] MEDS: CELECOXIB 200 MG CAPSULE PO (08:14)
[2022-07-14] MEDS: FAMOTIDINE 20 MG TABLET PO (08:14)
[2022-07-14] MEDS: SENNA/DOCUSATE SODIUM TABLET 2 TAB PO (08:15)
[2022-07-14] MEDS: polyethylene glycoL 3350 17 GM POWD.PACK PO (08:15)
[2022-07-14] MEDS: ATORVASTATIN 20 MG TABLET PO (08:15)
[2022-07-14] MEDS: ceFAZolin 2 GM/D5W 50 ML 2 GM/50 ML BAG IVPB (08:28)
[2022-07-14 10:45] VITALS: O2SAT 96
--- NOTE | 2022-07-16 07:36 | PM.DS ---
DS: Admitting Diagnosis Discharge Date 07/14/22 Admitting Diagnosis Osteoarthritis Right knee DS: Discharge Diagnosis Discharge Diagnosis (1) History of total knee arthroplasty: Code(s): Z96.659 - Presence of unspecified artificial knee joint Status: Acute Plan Home with therapy DS: Summary Hospital Course Reason for hospitalization: S/P Right Total Knee Hospital Course: Patient jeannine TKA RIght. Did well postoperatively and was discharged. Status at Discharge Cognitive/behavioral status at discharge: Normal Time Spent with Patient Time attestation: Total time spent providing and/or coordinating discharge services: Exam Narrative: Dressing intact. NVI Extrem: Other: Right TKA Discharge Plan Discharge Patient Disposition: Home, Self-Care Discharge Instructions: Remove the Scopolamine patch that was placed behind your left ear in 72 hours or less. Wash your hands after touching. Patient Instructions: Rivaroxaban (By mouth) Stand Alone Forms: General Discharge Instructions Discharge Medications: New hydrocodone-acetaminophen 7.5-325 mg tablet 1 tablet PO Q4H PRN (Reason: pain) Qty: 40 0RF Xarelto 10 mg tablet 10 mg PO DAILY Qty: 10 0RF Rx Instructions: for 35 days Continued Lactobacillus acidophilus [Acidophilus] Capsule 10 mg PO DAILY vitamin A 2,400 mcg capsule 2,400 mcg PO DAILY vitamin B complex [B Complex-Vitamin B12] Tablet 1 tablet PO DAILY ascorbic acid (vitamin C) 1,000 mg tablet 1 g PO DAILY cholecalciferol (vitamin D3) 125 mcg (5,000 unit) capsule 125 mcg PO DAILY omega-3 fatty acids [Fish Oil Concentrate] 1,000 mg capsule 1,000 mg PO DAILY calcium carbonate [Calcium 600] 600 mg calcium (1,500 mg) tablet 600 mg PO DAILY magnesium 250 mg tablet 250 mg PO DAILY turmeric root extract 500 mg capsule 1,000 mg PO DAILY omeprazole 20 mg capsule,delayed release(DR/EC) 20 mg PO QAM naproxen 500 mg tablet 500 mg PO BID PRN (Reason: Pain) black cohosh 40 mg Tablet 40 mg PO DAILY alendronate 70 mg tablet 70 mg PO WEEKLY Qty: 12 4RF atorvastatin 20 mg tablet 20 mg PO DAILY Qty: 90 4RF cinnamon bark [Cinnamon] 500 mg Capsule 500 mg PO DAILY
== END 2022-07-14 11:03 | disposition home or self-care (01) ==
LOC: ANHSURGERY 07:26 → ANH3MEDSUR 10:46
PROVIDERS: Nurse Practitioner; PCP Family Medicine; Visit Provider Orthopaedic Surgery
PROC: (CPT 27447; principal; 2022-07-13 07:30)
DX: M17.11 Unilateral primary osteoarthritis, right knee (principal); G89.18 Other acute postprocedural pain; I95.9 Hypotension, unspecified; E78.5 Hyperlipidemia, unspecified; K21.9 Gastro-esophageal reflux disease without esophagitis; Z87.891 Personal history of nicotine dependence; E66.9 Obesity, unspecified; Z68.31 Body mass index [BMI] 31.0-31.9, adult
CPT/HCPCS: 27447; 64447; 36415; 73560; 80048; 80307; 82040; 82565; 82947; 83036; 85014; 85018; 85025; 86850; 86900; 86901; 87081; 93005; 97110; 97116; 97161; 97165; 97530; 97535; A9270; C1713; C1770; C1776; J0171; J0690; J1100; J1170; J1885; J2250; J2270; J2405; J2704; J2795; J3010; J3370; J7030; J7120

== ENCOUNTER 2022-08-19 07:49 | Outpatient (RCR) | payer OTHER, SELFPAY ==
--- NOTE | 2022-09-02 08:05 | PTOPDC ---
Assessment and note entered by JT File, PT Evaluation Information Assessment Status Progress Diagnosis R TKA Onset 07/13/2022 Subjective Information patient reports the R knee feels tight today. she reports she is ready for DC from therapy. she reports she has been compliant with her HEP at home. she reports she is back to all prior level activities without hesitation. Reported Pain Level Pain Score 0: Self Report Assessment PT Clinical Summary mrs. mixon presents to skilled PT for her 18th skilled therapy visit, and her 14th skilled therapy visit since her R TKA. she present this date having met all goals for skilled PT, and only continuing to have minor deficits in R knee arom extension/terminal knee extension at initial contact. she is compliant with her HEP and ready to DC to HEP only at this time. Plan of Care Treatment Frequency and DC to independent HEP Duration
== END 2022-09-02 11:26 | disposition home or self-care (01) ==
LOC: CHSPT 07:49
PROVIDERS: Visit Provider Orthopaedic Surgery
DX: M17.11 Unilateral primary osteoarthritis, right knee (principal)
CPT/HCPCS: 97016; 97110; 97140; 97530

== ENCOUNTER 2022-12-13 11:27 | Outpatient (CLI) | payer OTHER, SELFPAY ==
--- NOTE | ~2022-12-13 | MMUS_ITS ---
EXAMINATION: MM diagnostic nando RT [place], US breast RT limited HISTORY: Six-month follow-up of probable benign findings from 05/24/2022 diagnostic right mammogram an d limited right breast ultrasound examination TECHNIQUE: Full field and spot 3-D tomosynthesis images of the right breast were performed and synthe tic 2-D images were generated. CAD analysis was submitted and interpreted. High resolution targeted p osterior right 2:00-5:00 breast ultrasound was performed. COMPARISON: 05/24/2022 diagnostic right mammogram and limited right breast ultrasound 04/28/2022, 04/12/2021, 05/04/2015 bilateral screening mammogram examinations BREAST PARENCHYMAL COMPOSITION: There are scattered areas of fibroglandular density. FINDINGS: MAMMOGRAPHIC FINDINGS: No suspicious mass or architectural distortion, malignant calcification, skin thickening or retractio n is detected. Previously reported mixed soft tissue and fatty density at the very posterior aspect of the inner rig ht breast on CC projection appears stable, likely benign, without sonographic correlate. ULTRASOUND: There is no evidence of focal abnormal solid or cystic lesion in the vicinity of the mammographic fin ding at the posterior inner right breast on craniocaudal mammographic view IMPRESSION: 1. Benign finding 2. Routine annual mammographic screening is recommended BI-RADS Category 2: Benign finding(s). Reviewed, dictated and finalized at location A. IMPRESSION: 1. Benign finding 2. Routine annual mammographic screening is recommended BI-RADS Category 2: Benign finding(s).
== END 2022-12-13 11:28 | disposition home or self-care (01) ==
LOC: ANHIMG 11:27
PROVIDERS: PCP Family Medicine; Visit Provider Family Medicine
DX: R92.8 Other abnormal and inconclusive findings on diagnostic imaging of breast (principal)
CPT/HCPCS: 76642; 77061; 77065; G0279

== ENCOUNTER 2023-03-02 08:35 | Outpatient (CLI) | payer OTHER, SELFPAY ==
[2023-03-02 11:34] LABS: Alanine Aminotransferase 22 U/L (6-35); Albumin Level 4.7 g/dL (3.5-5.1); Alkaline Phosphatase 62 U/L (38-126); Anion Gap 8 mmol/L (8-16); Aspartate Amino Transferase 34 U/L (14-36); Basophils Percent Auto 0.4 % (0.2-1.2); Bilirubin,Total 0.5 mg/dL (0.2-1.3); Blood Urea Nitrogen 16 mg/dL (7-17); Calcium 9.5 mg/dL (8.4-10.2); Carbon Dioxide 25 mmol/L (22-30); Chloride 103 mmol/L (98-107); Cholesterol 186 mg/dL (0-200); Eosinophils Absolute Auto 0.1 K/mm3 (0-0.3); Eosinophils Percent Auto 2.9 % (0-4.4); Estimated Glomerular Filt Rate > 60; Glucose 88 mg/dL (65-110); HDL Direct 43 mg/dL; Hematocrit 40.9 % (37.0-47.0); Immature Granulocyte Absolute 0.01 K/mm3 (0.00-0.031); Immature Granulocyte Percent A 0.2 % (0-0.5); Lymphocytes Absolute Auto 1.42 K/mm3 (0.9-3.2); Lymphocytes Percent Auto 28.9 % (18.3-44.2); Mean Corpuscular HGB Conc 31.8 g/dl (32-36); Mean Corpuscular Hemoglobin 30.7 pg (26-34); Mean Corpuscular Volume 96.5 fl (80-100); Mean Platelet Volume 9.7 fl (7.4-10.4); Monocytes Absolute Auto 0.4 K/mm3 (0.1-0.6); Monocytes Percent Auto 7.5 % (2.6-8.5); Neutrophils Percent Auto 60.1 % (45.5-73.1); Platelet Count Result 260 k/mm3 (150-375); Potassium 3.9 mmol/L (3.4-5.0); Red Blood Count 4.24 M/mm3 (4.2-5.4); Red Cell Distribution Width 12.2 % (11.5-14.5); Sodium 136 mmol/L (137-145); Triglycerides 208 mg/dL (<150); White Blood Count 4.9 K/mm3 (4.5-10.0)
[2023-03-02 11:45] LABS: LDL Cholesterol Direct 99 mg/dL
[2023-03-02 12:10] LABS: Hemoglobin A1C 5.6 % (<5.7)
== END 2023-03-02 08:36 | disposition home or self-care (01) ==
LOC: ANHGOSHLAB 08:37
PROVIDERS: PCP Family Medicine; Visit Provider Family Medicine
DX: Z13.228 Encounter for screening for other metabolic disorders (principal); R53.83 Other fatigue; Z13.29 Encounter for screening for other suspected endocrine disorder; E78.5 Hyperlipidemia, unspecified; R73.9 Hyperglycemia, unspecified
CPT/HCPCS: 36415; 80053; 80061; 83036; 84443; 85025

== ENCOUNTER 2024-02-19 07:25 | Outpatient (CLI) | payer OTHER, SELFPAY ==
--- NOTE | ~2024-02-19 | MM_ITS ---
EXAMINATION: MM screening nando BI [place] HISTORY: Screening TECHNIQUE: Craniocaudal and mediolateral oblique 3-D tomosynthesis images were obtained and synthetic 2-D images were generated. CAD analysis was submitted and interpreted. COMPARISON: Comparison to multiple prior studies sequentially, with oldest reviewed study dated 04/16. BREAST PARENCHYMAL COMPOSITION: Not dense: There are scattered areas of fibroglandular density. FINDINGS: There is no evidence of suspicious mass, calcification, or architectural distortion to sugg est malignancy in either breast. There has been no suspicious interval change. IMPRESSION: 1. No mammographic evidence of malignancy. 2. Recommend routine screening mammography in one year. BI-RADS Category 1: Negative Reviewed, dictated and finalized at location B.
== END 2024-02-19 07:26 | disposition home or self-care (01) ==
PROVIDERS: PCP Family Medicine; Visit Provider Family Medicine
DX: Z12.31 Encounter for screening mammogram for malignant neoplasm of breast (principal)
CPT/HCPCS: 77063; 77067

== ENCOUNTER 2024-03-01 09:49 | Outpatient (CLI) | payer OTHER, SELFPAY ==
[2024-03-01 18:43] LABS: Alanine Aminotransferase 19 U/L (6-35); Albumin Level 4.4 g/dL (3.5-5.1); Alkaline Phosphatase 53 U/L (38-126); Anion Gap 9 mmol/L (4-12); Aspartate Amino Transferase 32 U/L (14-36); Bilirubin,Total 0.7 mg/dL (0.2-1.3); Blood Urea Nitrogen 23 mg/dL (7-17); Calcium 9.2 mg/dL (8.4-10.2); Carbon Dioxide 26 mmol/L (22-30); Chloride 103 mmol/L (98-107); Cholesterol 164 mg/dL (0-200); Estimated Glomerular Filt Rate > 60; Glucose 86 mg/dL (65-110); HDL Direct 43 mg/dL; Potassium 4.3 mmol/L (3.4-5.0); Sodium 138 mmol/L (137-145); Triglycerides 144 mg/dL (<150)
[2024-03-01 18:55] LABS: Hemoglobin A1C 5.8 % (<5.7); LDL Cholesterol Direct 90 mg/dL
== END 2024-03-01 09:50 | disposition home or self-care (01) ==
LOC: ANHGOSHLAB 09:50
PROVIDERS: PCP Family Medicine; Visit Provider Family Medicine
DX: E78.5 Hyperlipidemia, unspecified (principal); R73.03 Prediabetes; Z13.228 Encounter for screening for other metabolic disorders
CPT/HCPCS: 36415; 80053; 80061; 83036

== ENCOUNTER 2024-03-11 09:19 | Outpatient (CLI) | payer OTHER, SELFPAY ==
--- NOTE | ~2024-03-11 | DEXA_ITS ---
Bone Density Report Name: GILMAR CHIU Age: 63 Sex: Female Ethnicity: White Date of : 1960 Indication: osteopenia; monitoring treatment; hysterectomy; Referring Provider: HELLEN ALEXIS Study: Bone densitometry was performed. Exam Date: March 11, 2024 Accession number: [id number] Bone Density: Region BMD T-score Z-score Classification AP Spine(L1-L4) 0.883 -1.5 0.2 Osteopenia Femoral Neck (Left) 0.624 -2.0 -0.6 Osteopenia Total Hip (Left) 0.789 -1.3 -0.1 Osteopenia Femoral Neck (Right) 0.628 -2.0 -0.6 Osteopenia Total Hip (Right) 0.671 -2.2 -1.1 Osteopenia Total Hip Mean 0.730 -1.8 -0.6 Osteopenia World Health Organization criteria for BMD impression classify patients as: Normal (T-score at or above -1.0), Osteopenia (T-score between -1.0 and -2.5), or Osteoporosis (T-score at or below -2.5). 10-year Fracture Risk: FRAX not reported because: Treated for osteoporosis Previous Exams: Region Exam Age BMD T-score BMD Change BMD Change Date g/cm2 vs Baseline vs Previous AP Spine (L1-L4) 03/11/2024 63 0.883 -1.5 0.099 (12.6%)* 0.099 (12.6%)* 04/12/2021 60 0.784 -2.4 Total Hip(Left) 03/11/2024 63 0.789 -1.3 0.036 (4.7%)* 0.036 (4.7%)* 04/12/2021 60 0.754 -1.5 Total Hip(Right) 03/11/2024 63 0.671 -2.2 0.009 (1.4%) 0.009 (1.4%) 04/12/2021 60 0.661 -2.3 *Denotes significance at 95% confidence level, LSC for AP Spine = 0.022 g/cm2, LSC for Total Hip = 0.027 g/cm2 Clinical Information Provided by Patient: Is being treated for osteoporosis Has used the following medications: Fosamax (i.e. alendronate), Vitamin D, Calcium Has the following medical conditions: Hysterectomy Patient maximum height was 63.0 Menopause Age: 42 Onset of menses at age 12 Number of children 1 Impression: The patient has low bone mass, based on the Right Total Hip T-score. No significant bone loss was observed. Discussion: PATIENT UNDER TREATMENT WITH NO SIGNIFICANT BMD LOSS SINCE LAST EXAM. In an untreated patient, BMD typically declines with age. A lack of decline or gain is usually a sign that treatment is efficacious and fracture risk is reduced. It is important to ask patients whether they are taking their medications and to encourage continued and appropriate compliance with their osteoporosis therapies to reduce fracture risk. It is also important to review their risk factors and encourage appropriate calcium and vitamin D intake
== END 2024-03-11 09:20 | disposition home or self-care (01) ==
LOC: ANHIMG 09:20
PROVIDERS: PCP Family Medicine; Visit Provider Family Medicine
DX: M81.0 Age-related osteoporosis without current pathological fracture (principal); M85.88 Other specified disorders of bone density and structure, other site; M85.852 Other specified disorders of bone density and structure, left thigh; M85.851 Other specified disorders of bone density and structure, right thigh
CPT/HCPCS: 77080

== ENCOUNTER 2025-01-24 08:03 | Outpatient (CLI) | payer OTHER, SELFPAY ==
--- OUTSIDE RECORDS SUMMARY | 2025-01-24 08:08 | XMS_ITS | Clinical Summary ---
Author Organization [facility] Address [address] [place] [address] Phone Care Team Providers Care Director Market Intelligence Name Role Phone Unavailable Primary Care Provider Unavailabl e Allergies No known active allergies Medications vitamin A 8,000 unit capsule Take 8,000 Units by mouth daily. Active Fish Oil-[place]-3 Fatty Acids (FISH OIL) 360-1,200 mg Capsule Take 1 Capsule by mouth. Active ascorbic acid, vitamin C, (VITAMIN C) 1,000 mg Tablet Take 1,000 mg by mouth daily. Active acidophillus citrus pectin 25 million cell/100 mg (LACTINEX) 25 million cell -100 mg Tablet Take 2 Tablets by mouth 3 times daily with meals. Active magnesium oxide (MAG-OX) 400 mg tablet Take 400 mg by mouth daily. Active Cinnamon Bark 500 mg Capsule Take by mouth. Active calcium as carbonate (CALTRATE) 1,500 mg (600 mg elemental) Tablet Take by mouth. Active cholecalciferol , vitamin D3, 1,000 unit Take by mouth. Active cyanocobalamin (VITAMIN B-12) 500 mcg tablet Take 500 mcg by mouth daily. 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 Gender Identity Not on file Sexual Orientation Not on file Last Filed Vital Signs Vital Sign Reading Time Taken Comments Blood Pressure 109/75 03/16/2017 1:21 PM CDT Pulse 63 03/16/2017 1:21 PM CDT Temperature 36.3 C (97.3 F) 03/16/2017 1:06 PM CDT Respiratory Rate 18 03/16/2017 1:21 PM CDT Oxygen Saturation 100% 03/16/2017 1:21 PM CDT Inhaled Oxygen Concentration - - Weight 75.3 kg (166 lb) 03/16/2017 11:20 AM CDT Height 160 cm (5' 3) 03/16/2017 11:20 AM CDT Body Mass Index 29.41 03/16/2017 11:20 AM CDT Plan of Treatment Health Maintenance Due Date Last Done Comments DTAP/TDAP/TD VACCINES (1 - Tdap) 11/11/1979 HPV/Cotest (21-29) 1981 CERVICAL CANCER SCREENING 1990 HPV/Cotest (30-65) 1990 PAP SMEAR 1990 BREAST CANCER SCREENING 2000 FIT-DNA Q 3 years 2005 FIT/FOBT Q 1 year 2005 Flex Sig/CT Colonography Q 5 years 2005 ZOSTER VACCINE (1 of 2) 2010 COLORECTAL SCREENING 03/16/2022 03/16/2017 Colorectal Cancer Screening 03/16/2022 INFLUENZA VACCINE (#1) 2025 RSV VACCINE (60+ or ) (1 - 1-dose 75+ series) 11/11/2035 Advance Directives For more information, please contact: [phone] * Full Code (Latest Code Status on File) Date Activated Date Inactivated Comments 03/16/2017 11:22 AM 03/16/2017 4:07 PM
--- OUTSIDE RECORDS SUMMARY | 2025-01-24 08:08 | XMS_ITS | Clinical Summary ---
Author Organization [facility] Address [address] [place] [address] Care Team Providers Care Bottoming Room Supervisor Name Role Phone Unavailable Primary Care Provider Unavailabl e Source Comments [facility],non-owned Affiliates and Associated Physician Practices is amultiple site organization consisting of ambulatory clinics and hospital sitesin [place], [place], [place] and [place]. This disclosure is being madepursuant to the Care Everywhere program and may not contain all information available regarding this patient. Last updated 18.[employer]Hands Allergies No known active allergies Medications * Be aware that medications may not be up to date on this document. Alwaysverify current medications with the patient. No known medications Social History Tobacco Use Types Packs/Day Years Used Date Smoking Tobacco: Never Smokeless Tobacco: Never Comments Unknown Sex and Gender Information Value Date Recorded Sex Assigned at Not on file Legal Sex Female 6:54 PM CDT Gender Identity Not on file Sexual Orientation Not on file Last Filed Vital Signs Vital Sign Reading Time Taken Comments Blood Pressure 120/84 02/15/2017 9:46 AM CDT Pulse 65 02/15/2017 9:46 AM CDT Temperature 36.7 C (98 F) 02/15/2017 9:46 AM CDT Respiratory Rate 16 02/15/2017 9:46 AM CDT Oxygen Saturation 97% 02/15/2017 9:46 AM CDT Inhaled Oxygen Concentration - - Weight 76.7 kg (169 lb) 02/15/2017 9:46 AM CDT Height 158.8 cm (5' 2.5) 02/15/2017 9:46 AM CDT Body Mass Index 30.42 02/15/2017 9:46 AM CDT Plan of Treatment Health Maintenance Due Date Last Done Comments COLOGUARD (AGES 45-75) - COL ON CA SCREENING 1960 COLON MONITORING 1960 COLONOSCOPY - COLON CA SCREENING 1960 CT COLONOGRAPHY - COLON CA SCREENING 1960 Colorectal Cancer Screening 1960 FIT - COLON CA SCREENING 1960 FLEX SIG - COLON CA SCREENING 1960 LIPID TESTING 1960 MAMMOGRAM 1960 HIV SCREENING 11/11/1975 HEPATITIS C SCREENING 11/06/1978 DTAP/TDAP/TD VACCINES (1 - Tdap) 11/11/1979 PNEUMOCOCCAL VACCINE 50+ (1 of 1 - PCV) 2010 ZOSTER VACCINE (1 of 2) 2010 SCREENING FOR DIABETES 02/15/2017 COVID-19 VACCINE ( - 2023-2 5 season) 2024 DEPRESSION SCREENING 07/17/2024 INFLUENZA VACCINE (Season Ended) 2025 Respiratory Syncytial Virus (RSV) Vaccine Pt: or over 60 yrs (1 - 1-dose 75+ series) 11/11/2035 HEPATITIS B VACCINE Aged Out No longe r eligible based on patient's age to complete this topic HIB VACCINE Aged Out No longer eligi ble based on patient's age to complete this topic HPV VACCINE Aged Out No longer eligi ble based on patient's age to complete this topic MENINGOCOCCAL (Group B) VACC INE SHARED DECISION-MAKING Aged Out No longer eligibl e based on patient's age to complete this topic MENINGOCOCCAL GROUPS A/C/Y/W VACCINE Aged Out No longer eligible b ased on patient's age to complete this topic Insurance [employer]IC
--- OUTSIDE RECORDS SUMMARY | 2025-01-24 08:08 | XMS_ITS | Clinical Summary ---
Author Organization [facility] Address [address] [place] [id number] Care Team Providers Care Historic Preservationist Name Role Phone Payam Ward MD Primary Care Provider Social History Tobacco Use Types Packs/Day Years Used Date Smoking Tobacco: Never Assessed Comments Unknown Sex and Gender Information Value Date Recorded Sex Assigned at Not on file Legal Sex Female 6:27 PM CDT Gender Identity Not on file Sexual Orientation Not on file Last Filed Vital Signs Vital Sign Reading Time Taken Comments Blood Pressure 100/71 03/31/2015 2:37 PM CDT Pulse 72 03/31/2015 2:37 PM CDT Temperature - - Respiratory Rate - - Oxygen Saturation - - Inhaled Oxygen Concentration - - Weight 76.2 kg (168 lb) 03/31/2015 2:37 PM CDT Height 160 cm (5' 3) 03/31/2015 2:37 PM CDT Body Mass Index 29.76 03/31/2015 2:37 PM CDT Plan of Treatment Health Maintenance Due Date Last Done Comments Cervical Cancer Screening Pa p Smear (Age 30 to 64) Every 3 Years 1960 Colorectal Cancer Screening Colonoscopy (10 Years) 1960 Annual Physical 11/11/1963 Hepatitis C 1978 DTaP, Tdap and Td Vaccines ( 1 - Tdap) 11/11/1979 Cervical Cancer Screening Pa p with HPV Testing (Age 30 to 64) Every 5 Years 1990 Cervical Cancer Screening with HPV 1990 Mammogram Screening 2000 Pneumococcal Vaccine: 50+ Ye ars (1 of 1 - PCV) 2010 Zoster Vaccines (1 of 2) 2010 COVID-19 Vaccine ( - 2023-2 5 season) 2024 RSV Immunization or 60+ Years (1 - 1-dose 75+ series) 11/11/2035 Meningococcal B Vaccine Aged Out No l onger eligible based on patient's age to complete this topic Meningococcal Vaccine Aged Out No yamilet lee ann eligible based on patient's age to complete this topic RSV Immunizations Under 20 Months Aged Out No longer eligible based on patient's age to complete this topic Care Teams Historic Preservationist Relationship Specialty Start Date End Date Payam Ward MD [address] [place] [address] PCP - General 05/04/15
[2025-01-24 11:55] LABS: Hematocrit 42.0 % (37.0-47.0); Hemoglobin 13.2 g/dL (12.0-15.0); Mean Corpuscular HGB Conc 31.4 g/dl (32-36); Mean Corpuscular Hemoglobin 29.9 pg (26-34); Mean Corpuscular Volume 95.2 fl (80-100); Platelet Count Result 232 k/mm3 (150-375); Red Blood Count 4.41 M/mm3 (4.2-5.4); White Blood Count 4.9 K/mm3 (4.5-10.0)
[2025-01-24 12:07] LABS: Alanine Aminotransferase 21 U/L (6-35); Albumin Level 4.7 g/dL (3.5-5.1); Alkaline Phosphatase 55 U/L (38-126); Anion Gap 12 mmol/L (4-12); Aspartate Amino Transferase 43 U/L (14-36); Bilirubin,Total 0.7 mg/dL (0.2-1.3); Blood Urea Nitrogen 18 mg/dL (7-17); Calcium 9.3 mg/dL (8.4-10.2); Carbon Dioxide 24 mmol/L (22-30); Chloride 104 mmol/L (98-107); Cholesterol 197 mg/dL (0-200); Estimated Glomerular Filt Rate > 60; Glucose 99 mg/dL (65-110); HDL Direct 46 mg/dL; Potassium 4.4 mmol/L (3.4-5.0); Sodium 140 mmol/L (137-145); Total Protein 7.5 g/dL (6.3-8.2); Triglycerides 156 mg/dL (<150)
[2025-01-24 12:43] LABS: Thyroid Stimulating Hormone 0.615 uIU/mL (0.465-4.680)
[2025-01-24 15:06] LABS: Hemoglobin A1C 5.8 % (<5.7)
== END 2025-01-24 08:04 | disposition home or self-care (01) ==
PROVIDERS: PCP Family Medicine; Visit Provider Family Medicine
DX: E66.9 Obesity, unspecified (principal); E78.2 Mixed hyperlipidemia; K21.9 Gastro-esophageal reflux disease without esophagitis; R73.03 Prediabetes; Z79.899 Other long term (current) drug therapy
CPT/HCPCS: 36415; 80053; 80061; 83036; 84443; 85027

== ENCOUNTER 2025-03-24 07:13 | Outpatient (CLI) | payer OTHER, SELFPAY ==
--- NOTE | ~2025-03-24 | MM_ITS ---
EXAMINATION: MM screening nando BI [place] HISTORY: Screening TECHNIQUE: Craniocaudal and mediolateral oblique 3-D tomosynthesis images were obtained and synthetic 2-D images were generated. CAD analysis was submitted and interpreted. COMPARISON: Comparison to multiple prior studies sequentially, with oldest reviewed study dated 05/04/2015. BREAST PARENCHYMAL COMPOSITION: There are scattered areas of fibroglandular density. FINDINGS: There is no evidence of suspicious mass, calcification, or architectural distortion to suggest malignancy in either breast. Scattered benign-appearing calcifications are present. IMPRESSION: 1. No mammographic evidence of malignancy. 2. Recommend routine screening mammography in one year. BI-RADS Category 2: Benign finding(s). Reviewed, dictated and finalized at location B.
== END 2025-03-24 07:14 | disposition home or self-care (01) ==
LOC: ANHFOHIMG 07:14
PROVIDERS: PCP Family Medicine; Visit Provider Family Medicine
DX: Z12.31 Encounter for screening mammogram for malignant neoplasm of breast (principal)
CPT/HCPCS: 77063; 77067

== ENCOUNTER 2025-05-06 13:32 | Outpatient (CLI) | payer OTHER, SELFPAY ==
--- NOTE | ~2025-05-06 | US_ITS ---
US soft tissue upper back 05/06/2025 13:53 Indication: Palpable lump right upper back Procedure: High-resolution ultrasound of the right posterior back in the area of palpable concern Comparison: No prior studies for comparison. Findings: There is an oval predominantly hypoechoic circumscribed parallel oriented mass measuring 4.6 x 6.1 x 1 cm. There are parallel oriented internal striations. No internal vascularity. There is mixed posterior attenuation. Impression: 1: Hypoechoic mass corresponding to the palpable finding, with sonographic characteristics compatible with benign lipoma. Reviewed, dictated and finalized at location O. Impression: 1: Hypoechoic mass corresponding to the palpable finding, with sonographic sumi acteristics compatible with benign lipoma.
== END 2025-05-06 13:33 | disposition home or self-care (01) ==
PROVIDERS: PCP Family Medicine; Visit Provider Nurse Practitioner Family
DX: R22.2 Localized swelling, mass and lump, trunk (principal)
CPT/HCPCS: 76604